=== PATIENT | male | born 2005 | race Caucasian/White ===

== ENCOUNTER → 2024-01-14 09:52 | Outpatient (BNVA) | payer SELFPAY | PROVIDERS: PCP Nurse Practitioner Family; Visit Provider Nurse Practitioner Family | DX: Z02.4 Encounter for examination for driving license (principal); F19.11 Other psychoactive substance abuse, in remission | CPT/HCPCS: 80307 ==

== ENCOUNTER → 2024-08-16 10:39 | Outpatient (BNVA) | payer OTHER, SELFPAY | PROVIDERS: PCP Nurse Practitioner Family; Visit Provider Registered Nurse | DX: Z02.1 Encounter for pre-employment examination (principal) | CPT/HCPCS: 80307 ==